=== PATIENT | female | born 1995 | race Caucasian/White ===

== ENCOUNTER 2017-07-25 10:35 | Emergency (ER) | payer BC, OTHER ==
[2017-07-26] MEDS ORDERED: ONDANSETRON 4 MG INJ (07:30)
== END 2017-07-25 13:05 | disposition home or self-care (01) ==
LOC: E/R 10:35
DX: K52.9 Noninfective gastroenteritis and colitis, unspecified (principal)
CPT/HCPCS: 99284; Z7502